=== PATIENT | male | born 1940 | race Hispanic/Latino ===

== ENCOUNTER 2017-12-07 14:08 | Outpatient (CLI) | payer MEDICARE, BC ==
[~2017-12-07 14:08] MED LIST: Iopamidol 370 76% 100 ML VIAL ONE
== END 2017-12-07 14:09 | disposition home or self-care (01) ==
LOC: BICCT 14:08
PROVIDERS: ATTEND Urology
DX: N28.1 Cyst of kidney, acquired (principal); R31.29 Other microscopic hematuria
CPT/HCPCS: 74178

== ENCOUNTER 2018-10-23 17:09 | Emergency (ER) | payer MEDICARE, BC ==
--- NOTE | 2018-10-23 18:02 | RAD ---
RIGHT HIP: 10/23/18 Two views. HISTORY: Injury with pain. No evidence of acute fracture. There is a rounded extraosseous calcific density just superior to the femoral neck. This is consistent with soft tissue or tendinous calcification. IMPRESSION: No acute fracture or osseous abnormality identified. POS: [facility]
--- NOTE | 2018-10-23 18:12 | RAD ---
AP PELVIS: 10/23/18 HISTORY: Fall with injury to hip and pelvis. Bony pelvis appears intact. Both hips appear intact. Soft tissue calcification adjacent to the right acetabulum. IMPRESSION: No acute fracture. POS: [facility]
== END 2018-10-23 18:22 | disposition home or self-care (01) ==
LOC: SCSER 17:09
DX: S30.0XXA Contusion of lower back and pelvis, initial encounter (principal); W01.0XXA Fall on same level from slipping, tripping and stumbling without subsequent striking against object, initial encounter
CPT/HCPCS: 72170

== ENCOUNTER 2021-08-06 09:48 | Day surgery (SDC) | payer MEDICARE, BC ==
[2021-08-06] MEDS ORDERED: diphenhydrAMINE 25 MG CAP PO SCH (10:30)
[2021-08-06] MEDS ORDERED: Acetaminophen 500 MG TAB PO SCH (10:30)
[2021-08-06] MEDS ORDERED: Sodium Chloride 0.9% 10 ML ONE ×2 (10:34)
[2021-08-06] MEDS ORDERED: diphenhydrAMINE 25 MG CAP ONE (10:34)
[2021-08-06] MEDS ORDERED: Acetaminophen 500 MG TAB ONE (10:34)
[2021-08-06 16:56] VITALS: BP 120/58; TEMP 98.5
== END 2021-08-06 16:57 | disposition home or self-care (01) ==
LOC: ONC/OP 09:48
PROVIDERS: ATTEND Internal Medicine Hematology & Oncology
PROC: 30233N1 Transfusion of Nonautologous Red Blood Cells into Peripheral Vein, Percutaneous Approach (ICD-10-PCS; principal; 2021-08-06)
DX: D64.9 Anemia, unspecified (principal); D69.6 Thrombocytopenia, unspecified; Z88.8 Allergy status to other drugs, medicaments and biological substances
CPT/HCPCS: 36430; 86850; 86900; 86901; P9016

== ENCOUNTER 2021-09-06 09:08 | Day surgery (SDC) | payer MEDICARE, BC ==
[2021-09-06] MEDS ORDERED: Sodium Chloride 0.9% 10 ML ONE (09:28)
[2021-09-06] MEDS ORDERED: diphenhydrAMINE 25 MG CAP ONE ×2 (09:45→09:47)
[2021-09-06] MEDS ORDERED: Acetaminophen 500 MG TAB ONE (09:46)
[2021-09-06 14:14] VITALS: BP 124/60; TEMP 97.6
== END 2021-09-06 14:29 | disposition home or self-care (01) ==
LOC: ONC/OP 09:08
PROVIDERS: ATTEND Internal Medicine Hematology & Oncology
PROC: 30233N1 Transfusion of Nonautologous Red Blood Cells into Peripheral Vein, Percutaneous Approach (ICD-10-PCS; principal; 2021-09-06)
DX: D64.9 Anemia, unspecified (principal); D69.6 Thrombocytopenia, unspecified; Z88.8 Allergy status to other drugs, medicaments and biological substances
CPT/HCPCS: 36430; 86850; 86900; 86901; P9016

== ENCOUNTER 2021-09-18 08:33 | Day surgery (SDC) | payer MEDICARE, BC ==
[2021-09-18] MEDS ORDERED: Sodium Chloride 0.9% 10 ML ONE (08:40)
[2021-09-18] MEDS ORDERED: Acetaminophen 500 MG TAB ONE (08:51)
[2021-09-18] MEDS ORDERED: diphenhydrAMINE 25 MG CAP ONE (08:51)
[2021-09-18 13:25] VITALS: BP 119/58; TEMP 98.1
== END 2021-09-18 13:25 | disposition home or self-care (01) ==
LOC: ONC/OP 08:33
PROVIDERS: ATTEND Internal Medicine Hematology & Oncology
PROC: 30233N1 Transfusion of Nonautologous Red Blood Cells into Peripheral Vein, Percutaneous Approach (ICD-10-PCS; principal; 2021-09-18)
DX: D64.9 Anemia, unspecified (principal); D69.6 Thrombocytopenia, unspecified; Z88.8 Allergy status to other drugs, medicaments and biological substances
CPT/HCPCS: 36430; 86850; 86900; 86901; P9016

== ENCOUNTER 2021-11-21 08:55 | Day surgery (SDC) | payer MEDICARE, BC ==
[2021-11-21] MEDS ORDERED: diphenhydrAMINE 25 MG CAP ONE (10:16)
[2021-11-21] MEDS ORDERED: Acetaminophen 500 MG TAB ONE (10:16)
[2021-11-21 15:18] VITALS: BP 107/51; TEMP 99.8
== END 2021-11-21 15:18 | disposition home or self-care (01) ==
LOC: ONC/OP 08:55
PROVIDERS: ATTEND Internal Medicine Hematology & Oncology
PROC: 30233N1 Transfusion of Nonautologous Red Blood Cells into Peripheral Vein, Percutaneous Approach (ICD-10-PCS; principal; 2021-11-21)
DX: D64.9 Anemia, unspecified (principal); D69.6 Thrombocytopenia, unspecified; Z88.8 Allergy status to other drugs, medicaments and biological substances
CPT/HCPCS: 36430; 86850; 86900; 86901; P9016